=== PATIENT | male | born 1995 | race Two or more races ===

== ENCOUNTER 2018-09-24 09:35 | Emergency (ER) | payer OTHER ==
[~2018-09-24] VITALS: Ht 165.1 cm; Wt 59.0 kg
[2018-09-24 09:35] VITALS: BP 117/85
[2018-09-24 10:32] LABS: BASOPHILS % (AUTO) 0.3 % (0.0-2.0); EOSINOPHILS % (AUTO) 0.3 % (0.0-6.0); HEMATOCRIT 47 % (39-51); HEMOGLOBIN 15.5 g/dL (13.5-17.5); LYMPHOCYTES # (AUTO) 1.7 /CMM (0.8-4.8); LYMPHOCYTES % (AUTO) 10.6 % (20.0-44.0); MEAN CORPUSCULAR HGB CONC 33 g/dl (31.0-36.0); MEAN CORPUSCULAR VOLUME 97 fL (80-96); MONOCYTES # (AUTO) 1.3 /CMM (0.1-1.30); MONOCYTES % (AUTO) 8.2 % (2.0-12.0); NEUTROPHILS # (AUTO) 13.1 /CMM (1.8-8.9); NEUTROPHILS % (AUTO) 80.6 % (43.0-81.0); PLATELET COUNT (AUTO) 268 /CMM (150-450); RED BLOOD CELL COUNT(AUTO) 4.86 MIL/uL (4.5-6.0); WHITE BLOOD COUNT (AUTO) 16.2 K/uL (4.3-11.0)
[2018-09-24 10:35] LABS: APPEARANCE,URINE SL CLOUDY (CLEAR); BILIRUBIN,URINE NEGATIVE (NEGATIVE); BLOOD, URINE SMALL Ery/uL (NEGATIVE); COLOR,URINE YELLOW (YELLOW); KETONES,URINE >=80 (NEGATIVE); LEUKOCYTE ESTERASE ,URINE NEGATIVE (NEGATIVE); NITRITE, URINE NEGATIVE (NEGATIVE); PROTEIN,URINE NEGATIVE (NEGATIVE); UGLUCOSE NEGATIVE (NEGATIVE); UROBILINOGEN,URINE 0.2 EU/dL (0.2)
[2018-09-24 10:46] LABS: CALCIUM, SERUM 9.3 mg/dL (8.5-10.1); CARBON DIOXIDE 27 mmol/L (21-32); CHLORIDE 99 mmol/L (98-107); CREATININE 0.8 mg/dL (0.6-1.3); GLUCOSE 85 mg/dL (74-106); POTASSIUM 4.2 mmol/L (3.5-5.1); SODIUM SERUM 139 mmol/L (136-145); UREA NITROGEN, BLOOD 9 mg/dL (7-18)
[2018-09-24 10:55] LABS: ALANINE AMINOTRANSFERASE 40 U/L (12-78); ALCOHOL, BLOOD < 3 mg/dL (0-0); ALKALINE PHOSPHATASE 64 U/L (46-116); ASPARTATE AMINOTRANSFERASE 50 U/L (15-37); BILIRUBIN,DIRECT 0.4 mg/dL (0.0-0.2); BILIRUBIN,TOTAL 1.8 mg/dL (0.2-1.0); TOTAL PROTEIN, SERUM 7.9 g/dL (6.4-8.2)
[2018-09-24 10:56] LABS: ACETAMINOPHEN 0 ug/ml (10-30); SALICYLATE < 0.2 mg/dL (2.8-20.0)
== END 2018-09-24 11:53 ==
LOC: ER 09:37
DX: R41.82 Altered mental status, unspecified (principal); Z60.2 Problems related to living alone
CPT/HCPCS: 36415; 80048-TC; 80076-TC; 80305; 81000-TC; 85025-TC; A4606; G0480; Z7610

== ENCOUNTER 2020-02-06 10:44 | Emergency (ER) | payer SELFPAY ==
[~2020-02-06] VITALS: Ht 170.2 cm; Wt 72.6 kg
[2020-02-06] MEDS ORDERED: MIDAZOLAM HCL 5 MG/5ML VIAL ONE (10:47)
[2020-02-06] MEDS ORDERED: MIDAZOLAM HCL 2 MG/2ML VIAL IM ONE (11:00)
--- NOTE | 2020-02-06 11:00 | NUR ---
Patient BIB [employer] C/C running around the street ,confuse ,agitated ,talkative ,non follows command , with order to cam him down
--- NOTE | 2020-02-06 12:07 | NUR ---
No order for Blood and urine [facility] .
--- NOTE | 2020-02-06 13:34 | NUR ---
Patient awake no agitation would like to have snack
--- NOTE | 2020-02-06 14:12 | NUR ---
noted patient able to stand non difficulties would like to Dc home Dr. Champion aware
--- NOTE | 2020-02-06 14:35 | NUR ---
Patient awake alert no hallucination ,no agitation he stated he lives with hi relative to pick him up patient is ambulatory he denies SI he refused to wait for DC home instruction snacks given .Belongings given tp patient .
[2020-02-06 14:40] VITALS: BP 134/67
== END 2020-02-06 14:40 | disposition home or self-care (01) ==
LOC: ER 10:48
DX: F19.129 Other psychoactive substance abuse with intoxication, unspecified (principal); R41.82 Altered mental status, unspecified; R45.1 Restlessness and agitation; Z60.2 Problems related to living alone
CPT/HCPCS: 96372; 99283; J2250

== ENCOUNTER 2023-10-27 15:04 | Emergency (ER) | payer MEDICAID ==
[~2023-10-27] VITALS: Ht 167.6 cm; Wt 68.5 kg
[2023-10-27] MEDS ORDERED: diphenhydrAMINE HCL 50 MG/ML VIAL ONE (15:48)
[2023-10-27] MEDS ORDERED: HALOPERIDOL LACTATE INJ 5 MG/ML VIAL ONE ×2 (15:49→16:55)
[2023-10-27] MEDS ORDERED: LORAZEPAM INJ 2 MG/ML VIAL ONE (15:49)
[2023-10-27] MEDS ORDERED: HALOPERIDOL LACTATE INJ 5 MG/ML VIAL IV ONE (16:30)
[2023-10-27] MEDS ORDERED: diphenhydrAMINE HCL 50 MG/ML VIAL IM ONE (16:30)
[2023-10-27] MEDS ORDERED: LORAZEPAM INJ 2 MG/ML VIAL IM ONE (16:30)
[2023-10-27] MEDS ORDERED: HALOPERIDOL LACTATE INJ 5 MG/ML VIAL IM ONE (17:00)
[2023-10-27 18:14] LABS: BASOPHILS % (AUTO) 0.2 % (0.0-2.0); EOSINOPHILS % (AUTO) 0.2 % (0.0-6.0); HEMATOCRIT 41 % (39-51); HEMOGLOBIN 13.5 g/dL (13.5-17.5); LYMPHOCYTES # (AUTO) 1.6 K/uL (0.8-4.8); LYMPHOCYTES % (AUTO) 10.4 % (20.0-44.0); MEAN CORPUSCULAR HEMOGLOBIN 31 PG (26.0-33.0); MEAN CORPUSCULAR HGB CONC 33 g/dl (31.0-36.0); MEAN CORPUSCULAR VOLUME 92 fL (80-96); MONOCYTES # (AUTO) 1.3 K/uL (0.1-1.30); MONOCYTES % (AUTO) 8.5 % (2.0-12.0); NEUTROPHILS # (AUTO) 12.1 K/uL (1.8-8.9); NEUTROPHILS % (AUTO) 80.7 % (43.0-81.0); PLATELET COUNT (AUTO) 311 K/uL (150-450); RED BLOOD CELL COUNT(AUTO) 4.42 MIL/uL (4.5-6.0); RED CELL DISTRIBUTION WIDTH 13.9 % (11.5-15.0)
[2023-10-27 18:38] LABS: ALANINE AMINOTRANSFERASE 40 U/L (12-78); ALBUMIN 3.6 g/dL (3.4-5.0); ALCOHOL, BLOOD < 3 mg/dL (0-10); ALKALINE PHOSPHATASE 74 U/L (46-116); ASPARTATE AMINOTRANSFERASE 29 U/L (15-37); BILIRUBIN,DIRECT 0.2 mg/dL (0.0-0.2); BILIRUBIN,TOTAL 0.9 mg/dL (0.2-1.0); CARBON DIOXIDE 20 mmol/L (21-32); CHLORIDE 107 mmol/L (98-107); CREATININE 0.9 mg/dL (0.6-1.3); GLUCOSE 89 mg/dL (74-106); POTASSIUM 3.7 mmol/L (3.5-5.1); SODIUM SERUM 142 mmol/L (136-145); TOTAL PROTEIN, SERUM 7.5 g/dL (6.4-8.2); UREA NITROGEN, BLOOD 25 mg/dL (7-18)
[2023-10-27 18:39] LABS: ACETAMINOPHEN 0 ug/ml (10-30); SALICYLATE 0.4 mg/dL (2.8-20.0)
[2023-10-27] MEDS ORDERED: LIDOCAINE 2% JEL UROJET 10 ML MM ONE (19:35)
[2023-10-27 19:50] LABS: APPEARANCE,URINE SLIGHTLY CLOUDY (CLEAR); BILIRUBIN,URINE NEGATIVE (NEGATIVE); BLOOD, URINE 3+ Ery/uL (NEGATIVE); COLOR,URINE YELLOW (YELLOW); KETONES,URINE 1+ mg/dL (NEGATIVE); LEUKOCYTE ESTERASE ,URINE NEGATIVE (NEGATIVE); NITRITE, URINE NEGATIVE (NEGATIVE); PROTEIN,URINE 2+ mg/dl (NEGATIVE); UGLUCOSE NEGATIVE (NEGATIVE)
[2023-10-27 20:30] LABS: BARBITURATE, URINE NEGATIVE (NEGATIVE); BENZODIAZEPINE, URINE NEGATIVE (NEGATIVE); COCCAINE, URINE NEGATIVE (NEGATIVE); OPIATE, URINE NEGATIVE (NEGATIVE); PHENCYCLIDINE SCREEN,URINE NEGATIVE (NEGATIVE)
[2023-10-27 20:41] LABS: AMPHETAMINE, URINE POSITIVE (NEGATIVE); CANNABINOID, URINE POSITIVE (NEGATIVE)
[2023-10-27 21:05] LABS: ADD URINE CULTURE NO; BACTERIA,URINE RARE /HPF (None Seen); RBC,URINE 51-80 /HPF (0-2); WBC,URINE 0-2 /HPF (0-3)
[2023-10-27 21:06] LABS: CALCIUM OXALATE CRYSTALS,UR Few /HPF (None Seen); MUCUS,URINE Many /LPF (None Seen)
[2023-10-28 23:42] VITALS: BP 134/84; TEMP 98.2; O2SAT 98
== END 2023-10-29 15:56 | disposition left against medical advice (07) ==
LOC: ER 15:08
DX: F29 Unspecified psychosis not due to a substance or known physiological condition (principal); F15.10 Other stimulant abuse, uncomplicated; R31.29 Other microscopic hematuria; F20.9 Schizophrenia, unspecified; Z60.2 Problems related to living alone; Z20.822 Contact with and (suspected) exposure to COVID-19
CPT/HCPCS: 99285; 96372 ×2; 85025; 80048; 80076; 81001; 36415; 87426; 80143; 80320; 80307; J2060; J1200; J1630 ×2; J3490; G0480

== ENCOUNTER 2024-04-11 17:14 | Inpatient (IN) | payer MEDICAID, OTHER ==
[~2024-04-11] VITALS: Ht 167.6 cm; Wt 61.2 kg
[2024-04-11] MEDS ORDERED: LORAZEPAM INJ 2 MG/ML VIAL ONE (17:33)
[2024-04-11] MEDS: LORAZEPAM INJ 2 MG/ML VIAL IV ONE (17:45)
[2024-04-11 17:54] LABS: BASOPHILS % (AUTO) 0.3 % (0.0-2.0); EOSINOPHILS # (AUTO) 0.2 K/uL (0.0-0.7); EOSINOPHILS % (AUTO) 1.8 % (0.0-6.0); HEMATOCRIT 37 % (39-51); HEMOGLOBIN 12.4 g/dL (13.5-17.5); LYMPHOCYTES # (AUTO) 1.5 K/uL (0.8-4.8); LYMPHOCYTES % (AUTO) 12.2 % (20.0-44.0); MEAN CORPUSCULAR HEMOGLOBIN 31 PG (26.0-33.0); MEAN CORPUSCULAR HGB CONC 34 g/dl (31.0-36.0); MEAN CORPUSCULAR VOLUME 93 fL (80-96); MONOCYTES % (AUTO) 8.5 % (2.0-12.0); NEUTROPHILS # (AUTO) 9.3 K/uL (1.8-8.9); NEUTROPHILS % (AUTO) 77.2 % (43.0-81.0); PLATELET COUNT (AUTO) 316 K/uL (150-450); RED BLOOD CELL COUNT(AUTO) 3.98 MIL/uL (4.5-6.0); RED CELL DISTRIBUTION WIDTH 13.7 % (11.5-15.0)
[2024-04-11 18:04] LABS: APPEARANCE,URINE CLEAR (CLEAR); BILIRUBIN,URINE 1+ (NEGATIVE); BLOOD, URINE TRACE-INTA Ery/uL (NEGATIVE); COLOR,URINE YELLOW (YELLOW); KETONES,URINE TRACE mg/dL (NEGATIVE); LEUKOCYTE ESTERASE ,URINE NEGATIVE (NEGATIVE); NITRITE, URINE NEGATIVE (NEGATIVE); PROTEIN,URINE 1+ mg/dl (NEGATIVE); UGLUCOSE NEGATIVE (NEGATIVE)
[2024-04-11 18:06] LABS: ALANINE AMINOTRANSFERASE 81 U/L (12-78); ALBUMIN 2.7 g/dL (3.4-5.0); ALCOHOL, BLOOD < 3 mg/dL (0-10); ALKALINE PHOSPHATASE 83 U/L (46-116); ASPARTATE AMINOTRANSFERASE 143 U/L (15-37); BILIRUBIN,DIRECT 0.2 mg/dL (0.0-0.2); BILIRUBIN,TOTAL 0.6 mg/dL (0.2-1.0); CALCIUM, SERUM 8.8 mg/dL (8.5-10.1); CARBON DIOXIDE 23 mmol/L (21-32); CHLORIDE 105 mmol/L (98-107); GLUCOSE 93 mg/dL (74-106); POTASSIUM 3.8 mmol/L (3.5-5.1); SODIUM SERUM 143 mmol/L (136-145); TOTAL PROTEIN, SERUM 6.6 g/dL (6.4-8.2); UREA NITROGEN, BLOOD 12 mg/dL (7-18)
[2024-04-11 18:13] LABS: SALICYLATE 0.8 mg/dL (2.8-20.0)
[2024-04-11 18:14] LABS: ACETAMINOPHEN 0 ug/ml (10-30)
[2024-04-11 18:17] LABS: BARBITURATE, URINE NEGATIVE (NEGATIVE); COCCAINE, URINE NEGATIVE (NEGATIVE); OPIATE, URINE NEGATIVE (NEGATIVE); PHENCYCLIDINE SCREEN,URINE NEGATIVE (NEGATIVE)
[2024-04-11 18:20] LABS: AMPHETAMINE, URINE POSITIVE (NEGATIVE); BENZODIAZEPINE, URINE POSITIVE (NEGATIVE); CANNABINOID, URINE POSITIVE (NEGATIVE)
[2024-04-11 18:37] LABS: ADD URINE CULTURE YES; BACTERIA,URINE 2+ /HPF (None Seen); SQUAMOUS EPITHELIAL CELL,UR Few /HPF (None Seen); WBC,URINE NONE SEEN /HPF (0-3)
[2024-04-11] MEDS ORDERED: ASPIRIN 81 MG TAB.CHEW ONE (20:08)
[2024-04-11] MEDS: ASPIRIN 81 MG TAB.CHEW PO ONE (20:23)
[2024-04-11] MEDS ORDERED: ACETAMINOPHEN 325 MG TABLET PO PRN (22:30)
[2024-04-11] MEDS ORDERED: MAG HYDROX/AL HYDROX/SIMETH 30 ML UDC PO PRN (22:30)
[2024-04-11] MEDS ORDERED: LORAZEPAM INJ 2 MG/ML VIAL IV PRN (22:30)
[2024-04-11] MEDS ORDERED: NALOXONE HCL 0.4 MG/ML AMPUL IV PRN (22:30)
[2024-04-11] MEDS ORDERED: MAGNESIUM HYDROXIDE 30 ML UDC PO PRN (22:30)
[2024-04-11] MEDS ORDERED: Z GUARD REMEDY 4 OZ OINT TP PRN (22:30)
[2024-04-11] MEDS ORDERED: ZOLPIDEM TARTRATE 5 MG TABLET PO PRN (22:30)
[2024-04-11] MEDS ORDERED: ONDANSETRON HCL/PF 4 MG/2 ML VIAL IVP PRN (22:30)
[2024-04-11 22:40] VITALS: BP 127/71; TEMP 97; O2SAT 94
[2024-04-11] MEDS: IV NS 0.9% 1,000 ML IV SCH (22:46)
[2024-04-11 23:00] VITALS: BP 119/85; O2SAT 96
[2024-04-11] MEDS: CEFTRIAXONE 1GM BAG (ER ONLY) 50 ML IV ONE (23:35)
[2024-04-11] MEDS: CEFTRIAXONE 1 G in IV D5W 50 ML IV SCH (23:41)
[2024-04-12] VITALS (13 sets, daily range): BP systolic 106–136; BP diastolic 65–89; TEMP 97–98; O2SAT 98–100
[2024-04-12] MEDS ORDERED: MORPHINE SULFATE INJ 2 MG/ML DISP.SYRIN IV PRN (01:00)
[2024-04-12] MEDS ORDERED: NITROGLYCERIN 0.4 MG/TAB BOTTLE SL PRN (01:00)
[2024-04-12] MEDS: ASPIRIN 325 MG TABLET PO SCH (04:55)
[2024-04-12 05:19] LABS: BASOPHILS % (AUTO) 0.4 % (0.0-2.0); EOSINOPHILS # (AUTO) 0.3 K/uL (0.0-0.7); EOSINOPHILS % (AUTO) 3.2 % (0.0-6.0); HEMATOCRIT 35 % (39-51); HEMOGLOBIN 11.8 g/dL (13.5-17.5); LYMPHOCYTES % (AUTO) 23.7 % (20.0-44.0); MEAN CORPUSCULAR HEMOGLOBIN 32 PG (26.0-33.0); MEAN CORPUSCULAR HGB CONC 34 g/dl (31.0-36.0); MEAN CORPUSCULAR VOLUME 93 fL (80-96); MONOCYTES # (AUTO) 0.7 K/uL (0.1-1.30); MONOCYTES % (AUTO) 7.9 % (2.0-12.0); NEUTROPHILS # (AUTO) 5.6 K/uL (1.8-8.9); NEUTROPHILS % (AUTO) 64.8 % (43.0-81.0); PLATELET COUNT (AUTO) 265 K/uL (150-450); RED BLOOD CELL COUNT(AUTO) 3.74 MIL/uL (4.5-6.0); RED CELL DISTRIBUTION WIDTH 13.7 % (11.5-15.0); WHITE BLOOD COUNT (AUTO) 8.6 K/uL (4.3-11.0)
[2024-04-12 06:14] LABS: CALCIUM, SERUM 8.4 mg/dL (8.5-10.1); CREATININE 0.7 mg/dL (0.6-1.3); MAGNESIUM 2.3 mg/dL (1.8-2.4); POTASSIUM 3.2 mmol/L (3.5-5.1)
[2024-04-12] MEDS: IV NS 0.9% 1,000 ML IV PRN (10:59)
[2024-04-12] MEDS: POTASSIUM CHLORIDE 20 MEQ TAB.PRT.SR PO SCH (11:08)
[2024-04-12] MEDS: NEOMY SULF/BACITRAC ZN/POLY 15 GM TUBE TP SCH (12:54)
[2024-04-13] MEDS ORDERED: ASPIRIN 81 MG TAB.CHEW PO SCH (09:00)
== END 2024-04-12 18:20 | disposition left against medical advice (07) | DRG 812 ==
LOC: ER 17:20 → ICU 21:46
PROVIDERS: ATTEND Student in an Organized Health Care Education/Training Program
DX: T43.621A Poisoning by amphetamines, accidental (unintentional), initial encounter (principal); G92.8 Other toxic encephalopathy; I21.A1 Myocardial infarction type 2; E44.0 Moderate protein-calorie malnutrition; E88.09 Other disorders of plasma-protein metabolism, not elsewhere classified; N39.0 Urinary tract infection, site not specified; D64.9 Anemia, unspecified; E87.6 Hypokalemia; F20.9 Schizophrenia, unspecified; R74.01 Elevation of levels of liver transaminase levels; D72.829 Elevated white blood cell count, unspecified; T40.411A Poisoning by fentanyl or fentanyl analogs, accidental (unintentional), initial encounter; T42.4X1A Poisoning by benzodiazepines, accidental (unintentional), initial encounter; T40.721A Poisoning by synthetic cannabinoids, accidental (unintentional), initial encounter; Y92.89 Other specified places as the place of occurrence of the external cause; F19.10 Other psychoactive substance abuse, uncomplicated; B96.89 Other specified bacterial agents as the cause of diseases classified elsewhere; Z68.21 Body mass index [BMI] 21.0-21.9, adult
CPT/HCPCS: 36415; 70450-TC; 71045-TC; 80048-TC; 80061-TC; 80076-TC; 81001; 83735-TC; 84100-TC; 84484-TC; 85025-TC; 87081-TC; 87086-TC; 93307-TC; A4223; G0378; G0480; J0696; J2060; J7030; J7060